=== PATIENT | male | born 1985 | race Caucasian/White ===

== ENCOUNTER 2020-12-26 17:09 | Emergency (ER) | payer OTHER ==
[~2020-12-26 17:09] MED LIST: CONSTULOSE10 GM/15 M PO
[2020-12-26] MEDS ORDERED: IBUPROFEN800 MG PO (20:40)
[2020-12-26] MEDS ORDERED: AMOXICILLIN500 MG PO (20:40)
== END 2020-12-26 21:13 | disposition home or self-care (01) ==
LOC: ER1 17:09
DX: S02.40CA Maxillary fracture, right side, initial encounter for closed fracture (principal); W19.XXXA Unspecified fall, initial encounter; Y92.009 Unspecified place in unspecified non-institutional (private) residence as the place of occurrence of the external cause
CPT/HCPCS: 70486; 99283